=== PATIENT | male | born 1960 | race Caucasian/White ===

== ENCOUNTER 2018-06-11 12:40 | Emergency (ER) | payer BC ==
[2018-06-11 13:28] VITALS: RESP 18; TEMP 98.6
--- NOTE | 2018-06-11 13:52 | ED ---
General Adult HPI - General Chief complaint: ENT Stated complaint: ENT Time Seen by Provider: 06/11/18 13:29 Source: patient, RN notes reviewed Mode of arrival: ambulatory Limitations: no limitations - History of Present Illness Initial comments: Patient 58-year-old male presenting to the emergency room today with a chief complaint of a sore throat over the last 2 days. Patient does admit that this morning he was taking his daily aspirin he went to swallow feels like the pill may have gotten stuck. He does admit that he went to urgent care. He states he has been able to eat and drink since. He states that struck test was performed therapy was sent here to the emergency room for possible foreign body. Patient denies any other complaints or symptoms. Patient does admit that the foreign body sensation has decreased but still experiencing sore throat when he swallows. Patient denies any recent fever, chills, shortness of breath, chest pain, back pain, abdominal pain, nausea or vomiting, numbness or tingling, headaches or visual changes, or any other complaints. - Related Data Home Medications Medication Instructions Recorded Confirmed Aspirin EC [Ecotrin Low Dose] 81 mg PO DAILY 06/11/18 06/11/18 Previous Rx's Medication Instructions Recorded Amoxicillin/Potassium Clav 1 each PO Q12HR #20 tab 06/11/18 [Augmentin 875-125 Tablet] Allergies Allergy/AdvReac Type Severity Reaction Status Date / Time No Known Allergies Allergy Verified 06/11/18 13:28 Review of Systems ROS Statement: Those systems with pertinent positive or pertinent negative responses have been documented in the HPI. ROS Other: All systems not noted in ROS Statement are negative. Past Medical History Past Medical History: No Reported History History of Any Multi-Drug Resistant Organisms: None Reported Past Surgical History: Orthopedic Surgery Past Psychological History: No Psychological Hx Reported Smoking Status: Current every day smoker Past Alcohol Use History: Occasional Past Drug Use History: None Reported General Exam - General Exam Comments Initial Comments: General: The patient is awake and alert, in no distress, and does not appear acutely ill. Eye: Pupils are equal, round and reactive to light, extra-ocular movements are intact. No nystagmus. There is normal conjunctiva bilaterally. No signs of icterus. Ears, nose, mouth and throat: There are moist mucous membranes and no oral lesions. Uvula midline. Patient swallows without difficulty. Increased redness erythema to the posterior pharynx no exudate. Neck: The neck is supple, there is no tenderness or JVD. Cardiovascular: There is a regular rate and rhythm. No murmur, rub or gallop is appreciated. Respiratory: Lungs are clear to auscultation, respirations are non-labored, breath sounds are equal. No wheezes, stridor, rales, or rhonchi. Musculoskeletal: Normal ROM, no tenderness. Strength 5/5. Sensation intact. Pulses equal bilaterally 2+. Neurological: A&O x 3. CN II-XII intact, There are no obvious motor or sensory deficits. Coordination appears grossly intact. Speech is normal. Skin: Skin is warm and dry and no rashes or lesions are noted. Psychiatric: Cooperative, appropriate mood & affect, normal judgment. Limitations: no limitations Course Vital Signs 06/11/18 13:26 Temperature 98.6 F Pulse Rate 69 Respiratory 18 Rate Blood Pressure 156/97 O2 Sat by Pulse 97 Oximetry Medical Decision Making - Medical Decision Making X-rays soft tissue neck are negative for any evidence of foreign body. Patient states that the foreign body sensation is decreased. He still experiencing some pain and discomfort when he swallows similar to a sore throat that is had in the past. Patient will be started on antibiotics cover for infection. Patient is advised follow-up family doctor return here to the emergency room if any symptoms increase or worsen. Disposition Clinical Impression: Acute pharyngitis Disposition: HOME SELF-CARE Condition: Good Instructions: Pharyngitis (ED) Additional Instructions: Please use medication as discussed. Please follow-up with family doctor in the next 2 days of symptoms have not improved. Please return to emergency room if the symptoms increase or worsen or for any other concerns. Prescriptions: Amoxicillin/Potassium Clav [Augmentin 875-125 Tablet] 1 each PO Q12HR #20 tab Is patient prescribed a controlled substance at d/c from ED?: No Referrals: Man Ferrara MD [Primary Care Provider] - 1-2 days Time of Disposition: 15:12
--- NOTE | 2018-06-11 14:53 | XR ---
Soft tissue neck HISTORY: Sore throat, foreign body sensation 2 views of the neck There is no radiographic foreign body. Epiglottis shows a normal appearance in profile. Mild degenera tive disc changes in the visualized spine, retrolisthesis grade 1 C4-5. There is facet arthropathy ch madisyn. Airway is patent. IMPRESSION: No radiographic apparent foreign body.
[2018-06-11 15:24] VITALS: BP 156/72; PULSE 77
== END 2018-06-11 15:24 | disposition home or self-care (01) ==
LOC: EC 12:40
DX: J02.9 Acute pharyngitis, unspecified (principal); F17.200 Nicotine dependence, unspecified, uncomplicated; Z79.82 Long term (current) use of aspirin
CPT/HCPCS: 70360; 99283

== ENCOUNTER → 2023-02-18 | Outpatient (CLI) | payer BC ==
[2023-02-18 18:44] LABS: Basophils # (A) 0.02 X 10*3/uL (0.00-0.10); Basophils % (A) 0.3 %; Eosinophils # (A) 0.03 X 10*3/uL (0.04-0.35); Eosinophils % (A) 0.4 %; HCT 43.6 % (39.6-50.0); HGB 14.3 g/dL (13.0-17.0); Immature Grans, Automated 0.1 %; Lymphocytes # (A) 1.99 X 10*3/uL (0.90-5.00); Lymphocytes % (A) 29.2 %; MCH 32.5 pg (27.0-32.0); MCHC 32.8 g/dL (32.0-37.0); MCV 99.1 fL (80.0-97.0); Mean Platelet Volume 9.6 fL (9.5-12.2); Monocytes # (A) 0.45 X 10*3/uL (0.20-1.00); Monocytes % (A) 6.6 %; NRBC Per 100 WBC 0 /100 WBCS (0.0-0.0); Neutrophils # (A) 4.31 X 10*3/uL (1.80-7.70); Neutrophils % (A) 63.4 %; Platelet Count 261 X 10*3/uL (140-440); RDW 13.1 % (11.5-14.5); WBC 6.81 X 10*3/uL (4.50-10.00)
== END | disposition home or self-care (01) ==
LOC: LABPAT 12:00
PROVIDERS: ATTEND Surgery
DX: Z01.812 Encounter for preprocedural laboratory examination (principal); K40.90 Unilateral inguinal hernia, without obstruction or gangrene, not specified as recurrent; D64.9 Anemia, unspecified; F17.200 Nicotine dependence, unspecified, uncomplicated
CPT/HCPCS: 85025; 93005

== ENCOUNTER 2023-02-28 09:53 | Day surgery (SDC) | payer BC ==
[2023-02-24 10:04] VITALS: BMI 24.3
[~2023-02-28 09:53] MED LIST: ACETAMINOPHEN TAB 500 MG TAB PO PRN; DEXAMETHASONE SOD PHOSPHATE 4 MG/ML 1 ML VIAL IV ONE; HEPARIN SODIUM,PORCINE/PF 5,000 UNIT/0.5 ML SYRINGE SQ PRN; HYDROmorphone 0.5 MG/0.5 ML SYRINGE IVP PRN; LACTATED RINGERS 1,000 ML IV SCH; MIDAZOLAM 2 MG/2 ML VIAL IV PRN; ONDANSETRON 4 MG/2 ML VIAL IVP ONE; SCOPOLAMINE 1 MG/72 HR PATCH TRANSDERM ONE
[2023-02-28] MEDS ORDERED: TAMSULOSIN 0.4 MG CAP.ER.24H PO ONE (11:48)
--- NOTE | 2023-02-28 11:51 | P.GSHP ---
History of Present Illness H&P Date: 02/28/23 Chief Complaint: Right inguinal hernia 62-year-old male here today for elective repair right inguinal hernia. Mild discomfort at times. Increasing in size. Please refer to recent history and physical. Past Medical History Past Medical History: Cancer, Hyperlipidemia, Hypertension, Prostate Disorder Additional Past Medical History / Comment(s): rt inguinal hernia,dx. prostate cancer March 2022-Dr. Riley monitoring History of Any Multi-Drug Resistant Organisms: None Reported Past Surgical History: Orthopedic Surgery Additional Past Surgical History / Comment(s): colonoscopy, right shoulder rotator cuff repair after a fall,prostate bx Past Anesthesia/Blood Transfusion Reactions: No Reported Reaction Smoking Status: Current every day smoker - Past Family History Mother Family Medical History: No Reported History Father Family Medical History: Cancer Additional Family Medical History / Comment(s): colon Medications and Allergies Home Medications Medication Instructions Recorded Confirmed Type Aspirin EC [Ecotrin Low Dose] 81 mg PO DAILY 06/11/18 02/28/23 History Atorvastatin Calcium [Lipitor] 80 mg PO QAM 04/19/22 02/28/23 History lisinopriL [Zestril] 5 mg PO QAM 04/19/22 02/28/23 History Allergies Allergy/AdvReac Type Severity Reaction Status Date / Time No Known Allergies Allergy Verified 02/28/23 10:20 Surgical - Exam Vital Signs Temp Pulse Resp BP Pulse Ox 97.5 F L 69 16 151/70 96 02/28/23 10:25 02/28/23 10:25 02/28/23 10:25 02/28/23 10:25 02/28/23 10:25 Physical exam: General: Well-developed, well-nourished HEENT: Normocephalic, sclerae nonicteric Abdomen: Nontender, nondistended, small reducible right inguinal hernia Extremities: No edema Neuro: Alert and oriented Assessment and Plan (1) Right inguinal hernia Narrative/Plan: 62-year-old male with symptomatic right inguinal hernia. We'll proceed with laparoscopic da Cheryl assisted repair right inguinal hernia with mesh, possible open, possible bilateral. Risks of bleeding, infection, recurrence, bladder and bowel injury, numbness, nerve injury, conversion to an open procedure were discussed with the patient. The patient understands and wishes to proceed. Current Visit: Yes Status: Acute Code(s): K40.90 - UNIL INGUINAL HERNIA, W/O OBST OR GANGR, NOT SPCF RECUR SNOMED Code(s): 034846783
[2023-02-28] MEDS ORDERED: KETOROLAC 15 MG/ML 1 ML VIAL ONE (11:53)
[2023-02-28] MEDS ORDERED: PHENYLEPHRINE-0.9% NACL SYG 1,000 MCG/10 ML SYRINGE ONE (11:53)
[2023-02-28] MEDS ORDERED: ROCURONIUM 10 MG/ML (5 ML VIAL) IV ONE (11:53)
[2023-02-28] MEDS ORDERED: HYDROmorphone (PF) 1 MG/ML ONE (11:53)
[2023-02-28] MEDS ORDERED: SUCCINYLCHOLINE CHLORIDE 200 MG/10 ML VIAL IV ONE (11:53)
[2023-02-28] MEDS ORDERED: fentaNYL (PF) 50 MCG/ML 2 ML AMP ONE (11:53)
[2023-02-28] MEDS ORDERED: PROPOFOL 10 MG/ML 20 ML VIAL IV ONE (11:53)
[2023-02-28] MEDS ORDERED: MIDAZOLAM 2 MG/2 ML VIAL ONE (11:53)
[2023-02-28] MEDS ORDERED: LIDOCAINE 2% INJ 20 MG/ML (2 ML VIAL) ONE (11:53)
[2023-02-28] MEDS ORDERED: KETAMINE 10 MG/ML 20 ML VIAL ONE (11:53)
[2023-02-28] MEDS ORDERED: BUPIVACAIN-EPI 0.25%-1:200,000 30 ML VIAL SQ ONE (12:47)
[2023-02-28] MEDS ORDERED: LACTATED RINGERS 1,000 ML IV ONE (13:32)
[2023-02-28 13:42] VITALS: TEMP 97.9
--- NOTE | 2023-02-28 13:42 | P.OP ---
Date of Procedure: 02/28/23 Procedure(s) Performed: PREOPERATIVE DIAGNOSIS: Right inguinal hernia POSTOPERATIVE DIAGNOSIS: Right femoral hernia PROCEDURE: Laparoscopic da Cheryl assisted repair right femoral hernia with mesh SURGEON: Dr. Perez ANESTHESIA: General OPERATIVE PROCEDURE DETAILS: Patient was placed in the operating table in the supine position. The patient was placed under general anesthesia. The abdomen was prepped and draped in usual sterile fashion. A small curvilinear supraumbilical incision was made. The fascia was retracted anteriorly with Christina forceps. The Veress needle was inserted. The saline drop test was normal. Insufflation took place to 15 mmHg. An 8 mm trocar was placed into the peritoneal cavity. 2 additional 8 mm trochars were placed in the right upper quadrant and left upper quadrant under visualization. The robotic arms were then brought in and docked into place. The fenestrated bipolar was used in the left arm and the laparoscopic jelena was utilized in the right arm. A 30 8 mm scope was used in the up position. The peritoneal cavity was inspected. The patient had no visible hernia on the left-hand side. On the right-hand side it initially appeared that he had a direct inguinal hernia. The peritoneum was incised in a horizontal fashion cephalad to the internal inguinal ring. Following that careful dissection of the preperitoneal space took place. This took place using both electrocautery, sharp dissection but primarily blunt dissection. Visualization of the pubic tubercle and Elvis's ligament took place medially. Full dissection took place laterally as well. The hernia sac was fully dissected. It turned out that this represented a femoral hernia. There was a large amount of fat present within the hernia sac that was reduced. Once we had adequate space the [id number] Progrip mesh was advanced into the preperitoneal space and flattened out appropriately to cover all potential hernia sites. Because of the low-lying nature of this hernia I did run a absorbable 30V lock suture along Elvis's ligament extending medially to the midline and then superiorly in an L-shaped manner. The peritoneal defect was then closed using a absorbable 2-0 VLok suture. The hernia sac was incorporated into the peritoneal closure to help prevent future recurrence. The pneumoperitoneum was then evacuated. The skin of all 3 sites was closed using a 4-0 Monocryl stitch. Skin glue was then applied. TYPE OF MESH USED: Progrip LOCATION OF MESH: Sub-lay FIXATION: Absorbable 30V lock PREOPERATIVE DISCUSSION ON SMOKING CESSASTION: Yes PREOPERATIVE DISCUSSION ON MORBID OBESITY: Yes PREOPERATIVE DISCUSSION ON APPROPRIATE USE OF NARCOTIC USE: Yes PREOPERATIVE EDUCATION: Multi Modal, Smoking Cessation and Weight Loss with BMI over 35. DISPOSITION: Stable to recovery room
[2023-02-28] MEDS ORDERED: traMADol 50 MG TAB ONE (14:21)
[2023-02-28 16:01] VITALS: RESP 18
[2023-02-28] MEDS ORDERED: ACETAMINOPHEN TAB 325 MG TAB PO SCH (16:30)
[2023-02-28 16:33] VITALS: BP 110/67; PULSE 65
[2023-02-28] MEDS ORDERED: IBUPROFEN 600 MG TAB PO SCH (19:30)
== END 2023-02-28 16:33 | disposition home or self-care (01) ==
LOC: OR 09:53
PROVIDERS: ATTEND Surgery
DX: K41.90 Unilateral femoral hernia, without obstruction or gangrene, not specified as recurrent (principal); E78.5 Hyperlipidemia, unspecified; I10 Essential (primary) hypertension; F17.200 Nicotine dependence, unspecified, uncomplicated; Z98.890 Other specified postprocedural states; Z79.82 Long term (current) use of aspirin; Z79.899 Other long term (current) drug therapy
CPT/HCPCS: 49650; S2900; 86850; 86900; 86901

== ENCOUNTER → 2024-07-03 | Outpatient (CLI) | payer BC | END | disposition home or self-care (01) | LOC: LABPAT 14:52 | PROVIDERS: ATTEND Urology | DX: Z01.812 Encounter for preprocedural laboratory examination (principal); C61 Malignant neoplasm of prostate | CPT/HCPCS: 86850; 86900; 86901 ==

== ENCOUNTER 2024-07-26 09:15 | Emergency (ER) | payer BC ==
--- NOTE | 2024-07-26 09:48 | ED ---
Male Urogenital HPI - General Chief complaint: Urogenital Stated complaint: urogential Time Seen by Provider: 07/26/24 09:23 Source: patient, RN notes reviewed Mode of arrival: ambulatory Limitations: no limitations - History of Present Illness Initial comments: 64-year-old male presents emergency department chief complaint of unable to urinate. Patient states that he had prostate surgery last week he had his catheter removed on Tuesday states he was doing well until he is unable to urinate overnight he states he has a large amount of pressure in his abdomen and a sensation to urinate. Patient denies any fevers or chills no flank pain. Patient offers no other associated symptoms. - Related Data Home Medications Medication Instructions Recorded Confirmed Aspirin EC [Ecotrin Low Dose] 81 mg PO DAILY 06/11/18 02/28/23 Atorvastatin Calcium [Lipitor] 80 mg PO QAM 04/19/22 02/28/23 lisinopriL [Zestril] 5 mg PO QAM 04/19/22 02/28/23 Previous Rx's Medication Instructions Recorded traMADol HCl [Ultram] 50 mg PO Q6H PRN #6 tab 02/28/23 Allergies Allergy/AdvReac Type Severity Reaction Status Date / Time No Known Allergies Allergy Verified 07/26/24 09:19 Review of Systems ROS Statement: Those systems with pertinent positive or pertinent negative responses have been documented in the HPI. ROS Other: All systems not noted in ROS Statement are negative. Past Medical History Past Medical History: Cancer, Hyperlipidemia, Hypertension, Prostate Disorder Additional Past Medical History / Comment(s): recent dx. prostate cancer-Dr. Riley monitoring History of Any Multi-Drug Resistant Organisms: None Reported Past Surgical History: Orthopedic Surgery Additional Past Surgical History / Comment(s): colonoscopy, right shoulder rotator cuff repair after a fall Past Anesthesia/Blood Transfusion Reactions: No Reported Reaction Past Psychological History: No Psychological Hx Reported Smoking Status: Current every day smoker Past Alcohol Use History: Occasional Past Drug Use History: None Reported General Exam Limitations: no limitations General appearance: alert, in no apparent distress Head exam: Present: atraumatic, normocephalic, normal inspection Respiratory exam: Present: normal lung sounds bilaterally. Absent: respiratory distress, wheezes, rales, rhonchi, stridor Cardiovascular Exam: Present: regular rate, normal rhythm, normal heart sounds. Absent: systolic murmur, diastolic murmur, rubs, gallop, clicks GI/Abdominal exam: Present: soft, distended, tenderness, normal bowel sounds. Absent: guarding, rebound, rigid Course Vital Signs 07/26/24 09:16 Temperature 98 F Pulse Rate 93 Respiratory 20 Rate Blood Pressure 167/94 O2 Sat by Pulse 99 Oximetry Medical Decision Making - Medical Decision Making Was pt. sent in by a medical professional or institution ([facility] Busby, [facility] [employer], urgent care, hospital, or snf...) When possible be specific @ -No Did you speak to anyone other than the patient for history (EMS, parent, family, police, friend...)? What history was obtained from this source @ -No Did you review nursing and triage notes (agree or disagree)? Why? @ -I reviewed and agree with nursing and triage notes Were old charts reviewed (outside hosp., previous admission, EMS record, old E KG, old radiological studies, urgent care reports/EKG's, snf records)? Report findings @ -No old charts were reviewed Differential Diagnosis (chest pain, altered mental status, abdominal pain women, abdominal pain men, vaginal bleeding, weakness, fever, dyspnea, syncope, headache, dizziness, GI bleed, back pain, seizure, CVA, palpatations, mental health, musculoskeletal)? @ -Urinary retention, UTI EKG interpreted by me (3pts min.). @ -None X-rays interpreted by me (1pt min.). @ -None done CT interpreted by me (1pt min.). @ -None done U/S interpreted by me (1pt. min.). @ -None done What testing was considered but not performed or refused? (CT, X-rays, U/S, labs)? Why? @ -None What meds were considered but not given or refused? Why? @ -None Did you discuss the management of the patient with other professionals (professionals i.e. [facility]IS[facility] Busby, [facility], lab, RT, psych nurse, oncology social work, insurance business analyst, teacher, civil preparedness officer, immigration case worker)? Give summary @ -No Was smoking cessation discussed for >3mins.? @ -No Was critical care preformed (if so, how long)? @ -No Were there social determinants of health that impacted care today? How? (Homelessness, low income, unemployed, alcoholism, drug addiction, transportation, low edu. Level, literacy, decrease access to med. care, halfway, rehab)? @ -No Was there de-escalation of care discussed even if they declined (Discuss DNR or withdrawal of care, Hospice)? DNR status @ -No What co-morbidities impacted this encounter? (DM, HTN, Smoking, COPD, CAD, Cancer, CVA, ARF, Chemo, Hep., AIDS, mental health diagnosis, sleep apnea, morbid obesity)? @ -None Was patient admitted / discharged? Hospital course, mention meds given and route, prescriptions, significant lab abnormalities, going to OR and other pertinent info. @ -Discharge patient had Bro catheter placed with no complications patient feels greatly improved patient has no evidence of UTI patient discharged with follow-up with urology. Undiagnosed new problem with uncertain prognosis? @ -No Drug Therapy requiring intensive monitoring for toxicity (Heparin, Nitro, Insulin, Cardizem)? @ -No Were any procedures done? @ -No Diagnosis/symptom? @ -Urinary retention Acute, or Chronic, or Acute on Chronic? @ -Acute Uncomplicated (without systemic symptoms) or Complicated (systemic symptoms)? @ -Uncomplicated Side effects of treatment? @ -No Exacerbation, Progression, or Severe Exacerbation? @ -No Poses a threat to life or bodily function? How? (Chest pain, [place], [place], pneumonia, PE, COPD, DKA, ARF, appy, cholecystitis, CVA, Diverticulitis, Homicidal, Suicidal, threat to staff... and all critical care pts) @ -No - Lab Data Lab Results 07/26/24 Range/Units 10:13 Urine Color Colorless Urine Appearance Clear (Clear) Urine pH 5.5 (5.0-8.0) Ur Specific [place] 1.013 (1.001-1.035) Urine Protein Negative (Negative) Urine Glucose (UA) Negative (Negative) Urine Ketones Negative (Negative) Urine Blood Moderate H (Negative) Urine Nitrite Negative (Negative) Urine Bilirubin Negative (Negative) Urine Urobilinogen <2.0 (<2.0) mg/dL Ur Leukocyte Esterase Trace H (Negative) Urine RBC 58 H (0-5) /hpf Urine WBC 17 H (0-5) /hpf Urine Bacteria Rare H (None) /hpf Urine Mucus Rare H (None) /hpf Disposition Clinical Impression: Urinary retention Disposition: HOME SELF-CARE Condition: Stable Instructions (If sedation given, give patient instructions): Urinary Retention in Men (ED) Additional Instructions: Please return to the Emergency Department if symptoms worsen or any other concerns. Is patient prescribed a controlled substance at d/c from ED?: No Referrals: Lianet Carter MD [Primary Care Provider] - 1-2 days Time of Disposition: 11:22
[2024-07-26 10:43] LABS: Appearance,Urine Clear (Clear); Bacteria,Urine Rare /hpf; Bilirubin,Urine Negative (Negative); Blood,Urine Moderate (Negative); Color,Urine Colorless; Glucose,Urine (UA) Negative (Negative); Ketones,Urine Negative (Negative); Leukocyte Esterase,Urine Trace (Negative); Mucus,Urine Rare /hpf; Nitrite,Urine Negative (Negative); PH, Urine 5.5 (5.0-8.0); Protein,Urine Negative (Negative); RBC,Urine 58 /hpf (0-5); Specific Gravity,Urine 1.013 (1.001-1.035); Urobilinogen,Urine <2.0 mg/dL (<2.0); WBC,Urine 17 /hpf (0-5)
[2024-07-26 12:32] VITALS: BP 156/67; PULSE 63; RESP 18; TEMP 98.4
== END 2024-07-26 12:32 | disposition home or self-care (01) ==
LOC: EC 09:15
CPT/HCPCS: 51702; 51798; 81001; 87086; 99283

== ENCOUNTER 2024-07-29 19:04 | Emergency (ER) | payer BC ==
[2024-07-29 19:08] VITALS: TEMP 97.9
--- NOTE | 2024-07-29 20:20 | ED ---
Male Urogenital HPI - General Chief complaint: Urogenital Stated complaint: Urogenital Time Seen by Provider: 07/29/24 20:17 Source: patient, RN notes reviewed Mode of arrival: ambulatory Limitations: no limitations - History of Present Illness Initial comments: 64-year-old male presenting with issue with Bro catheter. Patient states he had a surgery with Dr. Riley for prostate cancer 1 week ago. He then came to the ER 3 days ago for urinary retention where a Bro catheter was placed. Patient states over the past day, the catheter has been leaking and it has become very uncomfortable. States there has been some irritation at the distal end of the penis. Denies drainage. Denies abdominal pain, fever, or chills. - Related Data Home Medications Medication Instructions Recorded Confirmed Aspirin EC [Ecotrin Low Dose] 81 mg PO DAILY 06/11/18 02/28/23 Atorvastatin Calcium [Lipitor] 80 mg PO QAM 04/19/22 02/28/23 lisinopriL [Zestril] 5 mg PO QAM 04/19/22 02/28/23 Previous Rx's Medication Instructions Recorded traMADol HCl [Ultram] 50 mg PO Q6H PRN #6 tab 02/28/23 Allergies Allergy/AdvReac Type Severity Reaction Status Date / Time No Known Allergies Allergy Verified 07/29/24 19:08 Review of Systems ROS Statement: Those systems with pertinent positive or pertinent negative responses have been documented in the HPI. ROS Other: All systems not noted in ROS Statement are negative. Past Medical History Past Medical History: Cancer, Hyperlipidemia, Hypertension, Prostate Disorder Additional Past Medical History / Comment(s): recent dx. prostate cancer-Dr. Riley monitoring History of Any Multi-Drug Resistant Organisms: None Reported Past Surgical History: Orthopedic Surgery Additional Past Surgical History / Comment(s): colonoscopy, right shoulder rotator cuff repair after a fall Past Anesthesia/Blood Transfusion Reactions: No Reported Reaction Past Psychological History: No Psychological Hx Reported Smoking Status: Current every day smoker Past Alcohol Use History: Occasional Past Drug Use History: None Reported General Exam Limitations: no limitations General appearance: alert, in no apparent distress Head exam: Present: atraumatic, normocephalic, normal inspection Eye exam: Present: normal appearance, PERRL, EOMI. Absent: scleral icterus, conjunctival injection, periorbital swelling ENT exam: Present: normal exam, mucous membranes moist GI/Abdominal exam: Present: soft, normal bowel sounds. Absent: distended, tenderness, guarding, rebound, rigid Neurological exam: Present: alert, oriented X3 Psychiatric exam: Present: normal affect, normal mood Skin exam: Present: warm, dry, intact, normal color. Absent: rash Course Vital Signs 07/29/24 19:06 Temperature 97.9 F Pulse Rate 107 H Respiratory 18 Rate Blood Pressure 151/79 O2 Sat by Pulse 96 Oximetry Medical Decision Making - Medical Decision Making Was pt. sent in by a medical professional or institution (, [facility], FUNERAL HOME DIRECTOR, urgent care, hospital, or penitentiary...) When possible be specific @ -No Did you speak to anyone other than the patient for history (EMS, parent, family, police, friend...)? What history was obtained from this source @ -Patient's family supplemented history Did you review nursing and triage notes (agree or disagree)? Why? @ -I reviewed and agree with nursing and triage notes Were old charts reviewed (outside hosp., previous admission, EMS record, old EKG, old radiological studies, urgent care reports/EKG's, penitentiary records)? Report findings @ -No old charts were reviewed Differential Diagnosis (chest pain, altered mental status, abdominal pain women, abdominal pain men, vaginal bleeding, weakness, fever, dyspnea, syncope, headache, dizziness, GI bleed, back pain, seizure, CVA, palpatations, mental health, musculoskeletal)? @ -Bro catheter problem, UTI, BPH, prostate cancer EKG interpreted by me (3pts min.). @ -None X-rays interpreted by me (1pt min.). @ -None done CT interpreted by me (1pt min.). @ -None done U/S interpreted by me (1pt. min.). @ -None done What testing was considered but not performed or refused? (CT, X-rays, U/S, labs)? Why? @ -Urinalysis and culture considered however not performed due to culture sent out 3 days ago which was negative. No new symptoms other than Bro catheter leaking What meds were considered but not given or refused? Why? @ -None Did you discuss the management of the patient with other professionals (professionals i.e. , CH[facility]ISSY, FUNERAL HOME DIRECTOR, lab, RT, psych nurse, social media developer, senior scrum master, teacher, forward air controller/air officer, showcase trimmer)? Give summary @ -No Was smoking cessation discussed for >3mins.? @ -No Was critical care preformed (if so, how long)? @ -No Were there social determinants of health that impacted care today? How? (Homelessness, low income, unemployed, alcoholism, drug addiction, transportation, low edu. Level, literacy, decrease access to med. care, senior care, rehab)? @ -No Was there de-escalation of care discussed even if they declined (Discuss DNR or withdrawal of care, Hospice)? DNR status @ -No What co-morbidities impacted this encounter? (DM, HTN, Smoking, COPD, CAD, Cancer, CVA, ARF, Chemo, Hep., AIDS, mental health diagnosis, sleep apnea, morb id obesity)? @ -None Was patient admitted / discharged? Hospital course, mention meds given and route, prescriptions, significant lab abnormalities, going to OR and other pertinent info. @ -Patient was discharged. Patient was seen and evaluated for Bro catheter issue. Patient had Bro catheter placed 3 days ago for urinary retention status post prostate surgery with Dr. Riley. Patient states today catheter has been leaking. No sign of bacterial infection. No red flag symptoms. Catheter was removed and exchanged by GAVIOTA Sprague. Supportive care and Bro catheter care was discussed with patient. Patient feels stable for discharge at this time. Advised to follow-up with Dr. Riley for upcoming appointment. Return precautions discussed. Patient is agreeable to plan. Case discussed with my ED attending Dr. Mccall. Patient discharged stable condition. Undiagnosed new problem with uncertain prognosis? @ -No Drug Therapy requiring intensive monitoring for toxicity (Heparin, Nitro, Insulin, Cardizem)? @ -No Were any procedures done? @ -No Diagnosis/symptom? @ -Bro catheter issue Acute, or Chronic, or Acute on Chronic? @ -Acute Uncomplicated (without systemic symptoms) or Complicated (systemic symptoms)? @ -Uncomplicated Side effects of treatment? @ -No Exacerbation, Progression, or Severe Exacerbation? @ -No Poses a threat to life or bodily function? How? (Chest pain, USA, CA, pneumonia, PE, COPD, DKA, ARF, appy, cholecystitis, CVA, Diverticulitis, Homicidal, Suicidal, threat to staff... and all critical care pts) @ -No Disposition Clinical Impression: Bro catheter problem Disposition: HOME SELF-CARE Condition: Stable Additional Instructions: Follow-up as discussed with Dr. Riley for upcoming appointment. Please return to the Emergency Department if symptoms worsen or any other concerns. Is patient prescribed a controlled substance at d/c from ED?: No Referrals: Lianet Carter MD [Primary Care Provider] - 1-2 days Time of Disposition: 21:30
[2024-07-29 21:46] VITALS: BP 145/80; PULSE 90; RESP 16
== END 2024-07-29 21:50 | disposition home or self-care (01) ==
LOC: EC 19:04
DX: T83.091A Other mechanical complication of indwelling urethral catheter, initial encounter (principal); F17.200 Nicotine dependence, unspecified, uncomplicated; Y84.6 Urinary catheterization as the cause of abnormal reaction of the patient, or of later complication, without mention of misadventure at the time of the procedure
CPT/HCPCS: 51702; 99283

== ENCOUNTER → 2025-02-06 | Outpatient (CLI) | payer BC ==
--- NOTE | 2025-02-06 08:06 | CTL ---
EXAMINATION TYPE: CT Low Dose Lung DATE OF EXAM ORDERED: 02/06/2025 COMPARISON: None. CLINICAL INDICATION: Male, 64 years old with history of Z12.2 ENCNTR SCREEN FOR MALIGNANT NEOPLASM OF RESP; PHH, smoker, Lung cancer screening, History of Smoking/tobacco use. TECHNIQUE: Low dose computed tomography scan was performed through the chest at 1 mm thick sections a nd reconstructed images in multiple planes at 1 mm and [address] DLP: 107.[address] CTDI: 2.8 mGy Automated exposure control for dose reduction was used. CT DIAGNOSTIC QUALITY: Satisfactory FINDINGS: Nodules: A few scattered tiny nodules. For reference is a 2 to 3 mm right mid lung pulmonary nodule a xial image 172. No greater than 6 mm pulmonary nodules LUNGS: COPD: Severity: Mild Fibrosis: Severity: None Lymph nodes: None Other findings: None RIGHT PLEURAL SPACE: Effusion: None Calcification: None Thickening: None Pneumothorax: None LEFT PLEURAL SPACE: Effusion: None Calcification: None Thickening: None Pneumothorax: None HEART: Heart Size: Normal Coronary Calcification: None Pericardial Effusion: None OTHER FINDINGS: Upper abdomen: There are 2 roughly 1.0 cm low dense lesions scattered throughout the left hepatic dom e axial images 52 and 54 presumed benign. Bony thorax: There is S-shaped scoliosis. Supraclavicular region: None Other: Small degree of bilateral subareolar gynecomastia IMPRESSION: A few tiny nodules. No significant greater than [address] LUNG RAD AND CT CHEST RECOMMENDATION: Lung-Rad 2 Benign Appearance or Behavior: Continue annual sc reening with LDCT in 12 months. S Modifier (other clinically significant findings): None [facility], , 02/06/2025 8:04 AM
--- NOTE | 2025-02-06 08:21 | US ---
EXAMINATION TYPE: US carotid duplex BILAT DATE OF EXAM: 02/06/2025 COMPARISON: NONE CLINICAL INDICATION: Male, 64 years old with history of [id number] BILATERAL CAROTID ARTERY STENOSIS; Additional History: I65.- Occlusion/stenosis of specified precerebral artery, specified laterality TECHNIQUE: Grayscale, color Doppler and spectral Doppler evaluation of the bilateral carotid systems and vertebral arteries. Indirect Doppler criteria was utilized. FINDINGS: EXAM MEASUREMENTS: RIGHT: Peak Systolic Velocity (PSV) cm/sec ----- Right CCA: 98.5 ----- Right ICA: 97.5 ----- Right ECA: 117.3 ICA/CCA ratio: 1.0 RIGHT: End Diastole cm/sec ----- Right CCA: 34.7 ----- Right ICA: 28.2 ----- Right ECA: 33.3 LEFT: Peak Systolic Velocity (PSV) cm/sec ----- Left CCA: 102.7 ----- Left ICA: 94.9 ----- Left ECA: 121.2 ICA/CCA ratio: 0.9 LEFT: End Diastole cm/sec ----- Left CCA: 43.0 ----- Left ICA: 41.0 ----- Left ECA: 35.8 VERTEBRALS (direction of flow): Right Vertebral: Antegrade Left Vertebral: Antegrade Rhythm: Normal SECURITY SYSTEMS TECHNICIAN NOTES: no plaque or elevated velocities seen Color Doppler imaging shows patency with blood flow throughout the carotid artery. Spectral waveforms are within normal limits. IMPRESSION: Right: No hemodynamically significant stenosis. Left: No hemodynamically significant stenosis. Criteria for Assigning % of Stenosis / Diameter reduction (Estimation based on the indirect measurements of the internal carotid artery velocities (ICA PSV). 1. Normal (no stenosis)=ICA PSV < 125 cm/s: ratio < 2.0: ICA EDV<40 cm/s. 2. Less than 50% stenosis=ICA PSV < 125 cm/s: ratio < 2.0: ICA EDV<40 cm/s. 3. 50 to 69% stenosis=ICA PSV of 125 to 230 cm/s: ration 2.0 ? 4.0: ICA EDV 40-100 cm/s. 4. Greater than 70% stenosis to near occlusion= ICA PSV > 230 cm/s: ratio > 4.0: ICA EDV > 100 cm/s. 5. Near occlusion= ICA PSV velocities may be low or undetectable: variable ratio and ICA EDV. 6. Total occlusion=unable to detect flow. [facility], , 02/06/2025 8:18 AM
--- NOTE | 2025-02-06 11:46 | CA ---
Transthoracic Echo Report Name: Cody Juárez Age: 64 Gender: M : 1960 Exam Date: 02/06/2025 08:34 Exam Location: [place] [facility] Ht (in): 69 Wt (lb): 174 Ordering Physician: Lianet Carter MD Attending/Referring Phys: Jonathan Riley MD [employer] Geeta Arthur RDCS Procedure CPT: Indications: I34.0 Mild Mitral Valve Regurg Cardiac Hx: Technical Quality: Good Contrast 1: Total Dose (mL): Contrast 2: Total Dose (mL): MEASUREMENTS (Male / Female) Normal Values 2D ECHO LV Diastolic Diameter PLAX 4.5 cm 4.2 - 5.9 / 3.9 - 5.3 cm LV Systolic Diameter PLAX 3.0 cm IVS Diastolic Thickness 1.3 cm 0.6 - 1.0 / 0.6 - 0.9 cm LVPW Diastolic Thickness 1.1 cm 0.6 - 1.0 / 0.6 - 0.9 cm LV Relative Wall Thickness 0.5 RV Internal Dim ED PLAX 3.4 cm LA Systolic Diameter LX 3.0 cm 3.0 - 4.0 / 2.7 - 3.8 cm LV Diastolic Volume MOD 4C 118.9 cm??? LV Systolic Volume MOD 4C 54.6 cm??? LV Ejection Fraction MOD 4C 54.1 % LV Cardiac Index MOD 4C 2382.4 cm???/min???m??? LV Diastolic Length 4C 8.4 cm LV Systolic Length 4C 7.2 cm LV Diastolic Volume MOD 2C 120.6 cm??? LV Systolic Volume MOD 2C 60.0 cm??? LV Ejection Fraction MOD 2C 50.2 % LV Cardiac Index MOD 2C 2242.7 cm???/min???m??? LV Diastolic Length 2C 9.7 cm LV Systolic Length 2C 8.5 cm LA Volume 59.3 cm??? 18 - 58 / 22 - 52 cm??? LA Volume Index 30.1 cm???/m??? 16 - 28 cm???/m??? M-MODE Aortic Root Diameter MM 3.5 cm DOPPLER AV Peak Velocity 149.1 cm/s AV Peak Gradient 8.9 mmHg MV Area PHT 3.1 cm??? Mitral E Point Velocity 71.6 cm/s Mitral A Point Velocity 80.1 cm/s Mitral E to A Ratio 0.9 MV Deceleration Time 244.8 ms TR Peak Velocity 266.4 cm/s TR Peak Gradient 28.4 mmHg Right Ventricular Systolic Press 33.4 mmHg FINDINGS Left Ventricle Left ventricular ejection fraction is estimated at 55-60 %. Left ventricular cavity size normal. Mildly increased septal wall thickness. No obvious regional wall motion abnormalities. Right Ventricle Mild right ventricular dilatation. Right ventricular systolic pressure within normal limits. Right Atrium Normal right atrial size. No right atrial thrombus or mass seen. Left Atrium Mildly increased left atrial volume. No left atrial thrombus or mass present. Mitral Valve Structurally normal mitral valve. No evidence for mitral valve prolapse. No mitral stenosis. Mild mitral regurgitation. Aortic Valve Trileaflet aortic valve. No aortic valve stenosis or regurgitation. Tricuspid Valve Structurally normal tricuspid valve. Mild tricuspid regurgitation. Pulmonic Valve Structurally normal pulmonic valve. No pulmonic regurgitation. Pericardium No pericardial effusion. Aorta Normal size aortic root and proximal ascending aorta. CONCLUSIONS 1. Normal left ventricular size and systolic function 2. Mild mitral and tricuspid regurgitation Previewed by: Dr. Paddy Richardson MD (Electronically Signed) Final Date: 06 February 2025 11:45
== END | disposition home or self-care (01) ==
LOC: RADCTMAIN 07:29
PROVIDERS: ATTEND Internal Medicine
DX: Z12.2 Encounter for screening for malignant neoplasm of respiratory organs (principal); F17.210 Nicotine dependence, cigarettes, uncomplicated; I34.0 Nonrheumatic mitral (valve) insufficiency; I65.23 Occlusion and stenosis of bilateral carotid arteries; R91.8 Other nonspecific abnormal finding of lung field
CPT/HCPCS: 71271; 93306; 93880

== ENCOUNTER → 2025-02-14 | Outpatient (CLI) | payer OTHER, BC ==
--- NOTE | 2025-02-14 15:16 | XR ---
EXAMINATION TYPE: XR hand complete LT DATE OF EXAM: 02/14/2025 2:57 PM COMPARISON: None CLINICAL INDICATION: Male, 64 years old with history of [id number] LT FINGER PAIN; YCH, pain TECHNIQUE: XR hand complete LT 3 views were obtained. FINDINGS: Normal alignment of the visualized joints. No acute osseous pathology is identified. No e vidence of soft tissue swelling. No significant degeneration IMPRESSION: No acute osseous pathology. [facility], , 02/14/2025 3:14 PM
== END | disposition home or self-care (01) ==
LOC: RADXRYALE 14:42
PROVIDERS: ATTEND Physician Assistant
DX: M79.645 Pain in left finger(s) (principal)

== ENCOUNTER → 2025-03-22 | Outpatient (CLI) | payer BC ==
--- NOTE | 2025-03-22 09:46 | US ---
EXAMINATION TYPE: US liver DATE OF EXAM: 03/22/2025 COMPARISON: NONE CLINICAL INDICATION: Male, 64 years old with history of K76.9 liver disease; follow up to ct scan TECHNIQUE: Grayscale and color Doppler imaging of the right upper quadrant was performed. FINDINGS: EXAM MEASUREMENTS: Liver Length: 13.4 cm Gallbladder Wall: .2 cm CBD: .6 cm Right Kidney: 10.2 x 5.0 x 6.3 cm INSURANCE EXECUTIVE NOTES: Pancreas: Obscured by bowel gas Liver: wnl Gallbladder: No stones seen Evidence for sonographic Lopez's sign: No CBD: wnl Right Kidney: Anechoic area, simple cyst, upper pole 2.3 x 1.7 x 1.4 cm. IMPRESSION: 1. No acute abnormality right upper quadrant ultrasound. [facility], Workstation: [facility], 03/22/2025 9:43 AM
== END | disposition home or self-care (01) ==
LOC: RADUSWWP 11:50
PROVIDERS: ATTEND Internal Medicine
DX: K76.9 Liver disease, unspecified (principal); N28.1 Cyst of kidney, acquired
CPT/HCPCS: 76705